=== PATIENT | female | born 1985 | race African-American/Black ===

== ENCOUNTER 2017-07-29 15:03 | Emergency (ER) | payer OTHER ==
[~2017-07-29] VITALS: Ht 172.7 cm; Wt 69.8 kg
--- NOTE | ~2017-07-29 | CR169 ---
[facility] A Service of [facility] & [facility] RADIOLOGY TEXT RESULTS PATIENT: SHIRIN NINA LOCATION: CFTX : 89 UNIT #: [id number] AGE: [address]: Ivette Molina APRN SEX: F ORDER DR: [id number] [facility] [address] [place], [place] [address] [id number] E MR#: [id number] #: [id number] NAME: SHIRIN NINA : 1985 SEX: F STUDY DATE/TIME: 07/29/2017 16:34 UNIT: [facility] ROOM: STUDY DESCRIPTION: CR Knee 2 Views Lt Attending Physician: Ivette Molina A.P.R.N. Ordering Physician: Ed Glenn Pendleton M.D. Primary Care Physician: [facility] MEDICAL IMAGING REPORT This report is preliminary unless electronic signature is present EXAM Left knee, 07/29/2017. HISTORY 31-year-old female with left knee pain status post twisting injury while dancing 1 week ago. COMPARISON None FINDINGS Two views of the left knee demonstrate no acute fracture or dislocation. No significant joint effusion. Joint spaces are within normal limits. Soft tissues are unremarkable. IMPRESSION Unremarkable left knee. Dictated by... Enzo Navarro M.D. THIS IS AN ELECTRONICALLY VERIFIED REPORT Enzo Navarro M.D. at 07/30/2017 8:07 AM URIAH/yuli TD: 07/30/2017 04:16 JOB #: [id number] MEDICAL IMAGING REPORT Page 1 of 1 COPY
== END 2017-07-29 17:16 | disposition home or self-care (01) ==
LOC: CFTX 15:03 → CED 15:03 → CFTX 16:20
DX: S83.92XA Sprain of unspecified site of left knee, initial encounter (principal); X58.XXXA Exposure to other specified factors, initial encounter
CPT/HCPCS: 29530; 73560; 99283